=== PATIENT | male | born 1980 ===

== ENCOUNTER 2016-06-28 15:11 | Inpatient (IN) | payer MEDICAID, OTHER ==
[2016-06-28 15:56] LABS: BASO # 0.1 K/uL (0.0-0.2); BASO % 1.2 % (0.0-2.0); EOS # 0.1 K/uL (0.0-0.7); EOS % 1.9 % (0.0-4.0); HEMATOCRIT 42.5 % (35.0-51.0); LYMPH # 1.8 K/uL (1.0-4.3); LYMPH % 27.5 % (20.0-40.0); MEAN CELL VOLUME 89.4 fL (80.0-94.0); MEAN CORPUSCULAR HEMOGLOBIN 30.2 pg (27.0-31.0); MEAN CORPUSCULAR HGB CONC 33.8 g/dL (33.0-37.0); MEAN PLATELET VOLUME 8.2 fL (7.2-11.7); MONO # 0.5 K/uL (0.0-0.8); MONO % 7.4 % (0.0-10.0); RED CELL DISTRIBUTION WIDTH 13.6 % (11.5-14.5); WHITE BLOOD COUNT 6.6 K/uL (4.8-10.8)
[2016-06-28 16:02] LABS: RBC URINE 1 /hpf (0-3); URINE BILIRUBIN NEGATIVE (NEGATIVE); URINE BLOOD NEGATIVE (NEGATIVE); URINE COLOR Yellow (YELLOW); URINE GLUCOSE (UA) NORMAL (Normal); URINE KETONE NEGATIVE (NEGATIVE); URINE LEUKOCYTE ESTERASE NEG Leu/uL (Negative); URINE PROTEIN NEGATIVE (NEGATIVE); URINE UROBILINOGEN NORMAL mg/dL (0.2-1.0); WBC URINE 2 /hpf (0-5)
[2016-06-28 16:16] LABS: CHLORIDE 101 mmol/L (98-107); POTASSIUM 3.8 mmol/L (3.6-5.2); SODIUM 141 mmol/L (132-148)
[2016-06-28 16:18] LABS: ALB/GLOB RATIO 1.2 (1.0-2.1); ALKALINE PHOSPHATASE 72 U/L (38-126); ALT/SGPT 18 U/L (21-72); AST/SGOT 28 U/L (17-59); BILIRUBIN,TOTAL 1.7 mg/dL (0.2-1.3); BLOOD UREA NITROGEN 11 mg/dL (9-20); CARBON DIOXIDE 27 mmol/L (22-30); GFR AFRICAN-AMERICAN > 60; GLUCOSE,RANDOM 86 mg/dL (75-110)
[2016-06-28 16:19] LABS: ALCOHOL SERUM < 10 mg/dl (0-10)
--- NOTE | 2016-06-28 16:29 | C.PDOC ---
History Of Present Illness 35 y/o male presents to ED requesting detox from heroin and xanax. Denies any complaints on arrival. No signs of withdrawal. Denies suicidal ideation or homicidal ideation. Time Seen by Provider: 06/28/16 15:41 Chief Complaint (Nursing): Substance Abuse History Per: Patient History/Exam Limitations: no limitations Current Symptoms Are (Timing): Still Present Suicide/Self Injury Attempted (Context): None Modifying Factor(s): Narcotics, Other (benzos) Associated Symptoms: denies: Suicidal Thoughts, Suicidal Plan Recent travel outside of the [place]: No Past Medical History Reviewed: Historical Data, Nursing Documentation, Vital Signs Vital Signs: Last Vital Signs Temp 97.9 F 06/28/16 15:24 Pulse 102 H 06/28/16 15:24 Resp 18 06/28/16 15:24 BP 132/84 06/28/16 15:24 Pulse Ox 99 06/28/16 16:33 - Medical History PMH: Back Problems - [facility] Procedures DETOXIFICATION SERVICES FOR SUBSTANCE ABUSE TREATMENT (03/09/16) INDIV PSYCHOTHERAPY FOR SUBSTANCE ABUSE TREATMENT, SUPPORT (03/09/16) Family History: States: Unknown Family Hx - Social History Hx Tobacco Use: No Hx Alcohol Use: No Hx Substance Use: Yes - Immunization History Hx Tetanus Toxoid Vaccination: No Hx Influenza Vaccination: No Hx Pneumococcal Vaccination: No Review Of Systems Except As Marked, All Systems Reviewed And Found Negative. Constitutional: Negative for: Fever, Chills Respiratory: Negative for: Cough, Shortness of Breath Gastrointestinal: Negative for: Vomiting, Abdominal Pain, Diarrhea Skin: Negative for: Rash Psych: Negative for: Withdrawal Physical Exam - Physical Exam Appears: Non-toxic, No Acute Distress Skin: Normal Color, Warm, Dry Head: Atraumatic, Normacephalic Eye(s): bilateral: Normal Inspection Neck: Normal ROM Chest: Symmetrical Cardiovascular: Rhythm Regular Respiratory: Normal Breath Sounds, No Rales, No Rhonchi, No Wheezing Gastrointestinal/Abdominal: Soft, No Tenderness Back: Normal Inspection Extremity: Normal ROM, No Tenderness, No Pedal Edema, No Deformity, No Swelling Neurological/Psych: Oriented x3, Normal Speech ED Course And Treatment - Laboratory Results Result Diagrams: 06/28/16 15:52 06/28/16 15:52 Lab Interpretation: No Acute Changes O2 Sat by Pulse Oximetry: 99 (RA) Pulse Ox Interpretation: Normal Medical Decision Making Medical Decision Making: Patient was a pre-screen Labs ordered and reviewed. UDS positive for benzo, no opiates. n my clinical judgment patient is medically cleared and stable for admission. As per [facility] detox coordinator, patient is to be admitted to Dr Fernandez service for detox of benzo use. Disposition - Disposition Disposition: HOME/ ROUTINE Disposition Time: 17:32 Condition: STABLE - POA Present On Arrival: None - Clinical Impression Clinical Impression: Anxiolytic dependence - PA / CALL PERSON / Resident Statement MD/DO has reviewed & agrees with the documentation as recorded. - Scribe Statement The provider has reviewed the documentation as recorded by the Tiffanie Franklin Provider Scribe Attestation: All medical record entries made by the Chayoibe were at my direction and personally dictated by me. I have reviewed the chart and agree that the record accurately reflects my personal performance of the history, physical exam, medical decision making, and the department course for this patient. I have also personally directed, reviewed, and agree with the discharge instructions and disposition. Decision To Admit - Pt Status Changed To: Hospital Disposition Of: Inpatient - Admit Certification Admit to Inpatient:: After my assessment, the patient will require hospitalization for at least two midnights. This is because of the severity of symptoms shown, intensity of services needed, and/or the medical risk in this patient being treated as an outpatient. - InPatient: Physician Admission Certification: I certify that this patient requires 2 or more midnights of care for the following reason:: Patient with anxiolytic use disorder severe and here for detox. accepted to service of Dr Fernandez - . Bed Request Type: Detox Admitting Physician: Bry Fernandez Patient Diagnosis: Anxiolytic dependence
[2016-06-28] MEDS ORDERED: Buprenorphine Hydrochloride 2 mg SL ONE ×3 (18:56→22:15)
[2016-06-29] MEDS: Buprenorphine Hydrochloride 2 mg SL SCH (09:17)
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
[2016-06-29] MEDS ORDERED: Aluminum Hydroxide/Magnesium Hydroxide Susp (30 mL) PO PRN (11:35)
--- NOTE | 2016-06-30 22:30 | PCM.PYCHPN ---
Psychiatric Progress Note - Psychiatric Progress Note Patient seen today, length of contact: 15 min Patient Chief Complaint: "A little better" Problems Identified/Issues Discussed: The pt is seen, chart reviewed, case discussed with staff. The pt is compliant with medications and reports no side-effects. Symptoms are improving but needs more time to stabilize. After care discussed, support and psychoeducation given. [place] and CBT used briefly. Medication Change: Yes (detox changes daily) Medical Record Reviewed: Yes Mental Status Examination - Cognitive Function Orientation: Person, Place, Situation, Time Memory: Intact Attention: WNL Concentration: Poor Association: WNL Fund of Knowledge: WNL - Mood Mood: Anxious - Affect Affect: Constricted - Speech Speech: Appropriate - Formal Thought Process Formal Thought Process: No Impairment - Suicidal Ideation Suicidal Ideation: No - Homicidal Ideation Homicidal Ideation: No Goal/Treatment Plan - Goal/Treatment Plan Need for Continued Stay: Discharge may exacerbated symptoms, Severe functional impairment Progress Toward Problem(s) and Goals/Treatment Plan: Opioids: -Subutex detox -As needed medications -Support and psychoeducation -Attend groups and activities -[place] and CBT Refer to rehab or IOP Benzos (sed, hyp, anx): - Librium detox - Support and psycheod - [place] and CBT
[2016-07-01] MEDS: Buprenorphine Hydrochloride 2 mg SL SCH (09:54)
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
[2016-07-02 02:25] LABS: ACETONE None Detected; ETHANOL None Detected; METHANOL None Detected
[2016-07-02 06:11] VITALS: PULSE 69; O2SAT 99
[2016-07-02] MEDS: Buprenorphine Hydrochloride 2 mg SL SCH (09:37)
[2016-07-02 09:53] VITALS: BP 124/80; RESP 16; TEMP 97.3
== END 2016-07-02 10:20 | disposition home or self-care (01) | DRG 745 ==
LOC: C.ER 15:11 → C.7D 17:29
PROVIDERS: ADMIT Psychiatry & Neurology Psychiatry; ATTEND Psychiatry & Neurology Psychiatry
PROC: HZ2ZZZZ Detoxification Services for Substance Abuse Treatment (ICD-10-PCS; principal; 2016-06-28)
PROC: HZ59ZZZ Individual Psychotherapy for Substance Abuse Treatment, Supportive (ICD-10-PCS; 2016-06-28)
PROC: HZ46ZZZ Group Counseling for Substance Abuse Treatment, Psychoeducation (ICD-10-PCS; 2016-06-28)
PROC: GZ3ZZZZ Medication Management (ICD-10-PCS; 2016-06-28)
DX: F11.23 Opioid dependence with withdrawal (principal); F13.230 Sedative, hypnotic or anxiolytic dependence with withdrawal, uncomplicated; F41.1 Generalized anxiety disorder

== ENCOUNTER 2016-10-06 15:50 | Observation (INO) | payer MEDICAID, OTHER ==
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
--- NOTE | 2016-10-06 17:25 | RAD ---
PROCEDURE: Radiographs of the right tibia and fibula. HISTORY: injury COMPARISON: None available. TECHNIQUE: Frontal and lateral views obtained. FINDINGS: BONES: No acute displaced fracture. JOINT SPACES: No dislocation. OTHER FINDINGS: Soft tissues appear unremarkable. No evidence of radiopaque foreign body. IMPRESSION: No acute displaced fracture or dislocation identified.
--- NOTE | 2016-10-06 17:26 | RAD ---
PROCEDURE: Right Ankle Radiographs. HISTORY: injury COMPARISON: None available. FINDINGS: BONES: No acute displaced fracture. JOINTS: No dislocation. SOFT TISSUES: Soft tissue swelling. No evidence of radiopaque foreign body. OTHER FINDINGS: None. IMPRESSION: Marked soft tissue swelling. No acute displaced fracture, dislocation, or significant joint effusion identified. If symptoms persist or if there is clinical concern, x-ray follow-up in 7-10 days should be considered.
--- NOTE | 2016-10-06 17:30 | RAD ---
PROCEDURE: Right Foot Radiographs. HISTORY: injury COMPARISON: None available. FINDINGS: BONES: Comminuted fracture of the distal 2nd metatarsal. Remainder the visualized osseous structures appear intact. JOINTS: No dislocation. SOFT TISSUES: Soft tissue swelling. No evidence of radiopaque foreign body. OTHER FINDINGS: None. IMPRESSION: Comminuted fracture of the 2nd distal metatarsal. Associated soft tissue swelling.
--- NOTE | 2016-10-06 18:13 | CT ---
PROCEDURE: CT HEAD WITHOUT CONTRAST. HISTORY: injury COMPARISON: 10/28/2013 TECHNIQUE: Axial computed tomography images were obtained through the head/brain without intravenous contrast. Radiation dose: Total exam DLP = 898 mGy-cm. This CT exam was performed using one or more of the following dose reduction techniques: Automated exposure control, adjustment of the mA and/or kV according to patient size, and/or use of iterative reconstruction technique. FINDINGS: HEMORRHAGE: No intracranial hemorrhage. BRAIN: No mass effect or edema. No atrophy or chronic microvascular ischemic changes. VENTRICLES: Unremarkable. No hydrocephalus. CALVARIUM: Unremarkable. PARANASAL SINUSES: Unremarkable as visualized. No significant inflammatory changes. MASTOID AIR CELLS: Unremarkable as visualized. No inflammatory changes. OTHER FINDINGS: None. IMPRESSION: No acute findings
--- NOTE | 2016-10-06 18:18 | CT ---
PROCEDURE: CT MAXILLOFACIAL BONES WITHOUT CONTRAST HISTORY: injury COMPARISON: None TECHNIQUE: Contiguous axial CT images of the maxillofacial bones were obtained. Coronal and sagittal reformats were generated. Radiation dose: Total exam DLP = 764 mGy-cm. This CT exam was performed using one or more of the following dose reduction techniques: Automated exposure control, adjustment of the mA and/or kV according to patient size, and/or use of iterative reconstruction technique. FINDINGS: NASAL BONES: Unremarkable. ORBITS: Unremarkable. PARANASAL SINUSES/ MASTOIDS: There is partial opacification of the right-sided ethmoid air cells. MAXILLA: Unremarkable. MANDIBLE/ TEMPOROMANDIBULAR JOINTS: Unremarkable. SKULL BASE: Unremarkable. TEMPORAL BONES: Middle ears and mastoid grossly unremarkable. OTHER FINDINGS: None. IMPRESSION: No evidence of acute fracture
[2016-10-06 20:16] VITALS: BP 130/92; PULSE 88; RESP 20; TEMP 97.9; O2SAT 100
--- NOTE | 2016-10-07 14:26 | CP.PCM.CON ---
History of Present Illness - History of Present Illness History of Present Illness: 36 year old male patient seen in ED for acute, dislocated right second metatarsal fracture. Patient is highly intoxicated and disoriented and is unable to give a proper history at this time. Review of Systems - Review of Systems Review of Systems: ROS unremarkable outside of HPI Past Patient History - Past Medical History & Family History Past Medical History?: Yes - Past Social History Smoking Status: Heavy Smoker > 10 Cigarettes Daily - CARDIAC Hx Cardiac Disorders: No Hx Hypertension: No - PULMONARY Hx Tuberculosis: No - NEUROLOGICAL Hx Seizures: Yes (from xanax w/d) - HEMATOLOGICAL/ONCOLOGICAL Hx Cancer: No Hx Human Immunodeficiency Virus (HIV): No - MUSCULOSKELETAL/RHEUMATOLOGICAL Hx Musculoskeletal Disorders: Yes Hx Falls: Yes - GENITOURINARY/GYNECOLOGICAL Hx Sexually Transmitted Disorders: No - PSYCHIATRIC Hx Substance Use: Yes - SURGICAL HISTORY Hx Surgeries: No - ANESTHESIA Hx Anesthesia: No Hx Anesthesia Reactions: No Meds Home Medications: Home Medication List Medication Instructions Recorded Confirmed Type traMADol [Ultram] 50 mg PO TID #7 tab 10/06/16 Rx Allergies/Adverse Reactions: Allergies Allergy/AdvReac Type Severity Reaction Status Date / Time No Known Allergies Allergy Verified 10/06/16 16:18 Physical Exam - Constitutional Appears: Unkempt - Extremities Exam Additional comments: LE focused exam: Vasc: DP/PT pulses palpable 2/4 b/l. Skin temperature warm to warm from proximal to distal. CFT < 3 seconds to digits 1-5 b/l Neuro: Epicritic and protective sensation grossly intact b/l Derm: No open lesions, wounds, maceration, xerosis, anormal pigmentation or abnormal growths noted at this time MSK: POP to right midfoot - Neurological Exam Neurological exam: Altered Results - Vital Signs Recent Vital Signs: Last Vital Signs Temp 97.9 F 10/06/16 20:14 Pulse 88 10/06/16 20:14 Resp 20 10/06/16 20:14 BP 130/92 H 10/06/16 20:14 Pulse Ox 100 10/06/16 20:14 Assessment & Plan - Assessment and Plan (Free Text) Assessment: 36 year old male seen in ED for displaced second metatarsal fx Plan: Patient seen and evaluated Xray shows acute, displaced fracture of right second metatarsal Plan discussed with attending Dr. Fang Posterior splint applied to right leg Patient to follow up with Dr. Fang on Monday in her [facility] [place] clinic - Date & Time Date: 10/06/16 Time: 18:00
== END 2016-10-06 20:05 | disposition home or self-care (01) ==
LOC: C.ER 15:50 → C.9OBSV 19:37
PROVIDERS: ADMIT Emergency Medicine; ATTEND Emergency Medicine
DX: F10.129 Alcohol abuse with intoxication, unspecified (principal); Y90.9 Presence of alcohol in blood, level not specified; S00.81XA Abrasion of other part of head, initial encounter; S00.83XA Contusion of other part of head, initial encounter; S92.324A Nondisplaced fracture of second metatarsal bone, right foot, initial encounter for closed fracture; Y00.XXXA Assault by blunt object, initial encounter
CPT/HCPCS: 70450; 70486; 73590; 73610; 73630; G0378

== ENCOUNTER 2016-10-17 08:47 | Inpatient (IN) | payer MEDICAID, OTHER ==
[2016-10-17] MEDS ORDERED: Tmp-Smz 800 mg-160 mg DS Tab PO STA (09:38)
[2016-10-17] MEDS ORDERED: Tmp-Smz 800 mg-160 mg DS Tab ONE (09:44)
[2016-10-17 10:03] LABS: BASO # 0.1 K/uL (0.0-0.2); BASO % 0.8 % (0.0-2.0); EOS # 0.3 K/uL (0.0-0.7); EOS % 3.2 % (0.0-4.0); HEMATOCRIT 37.6 % (35.0-51.0); LYMPH # 1.7 K/uL (1.0-4.3); LYMPH % 21.4 % (20.0-40.0); MEAN CORPUSCULAR HEMOGLOBIN 31.9 pg (27.0-31.0); MEAN CORPUSCULAR HGB CONC 34.3 g/dL (33.0-37.0); MEAN PLATELET VOLUME 9.3 fL (7.2-11.7); MONO # 0.6 K/uL (0.0-0.8); MONO % 8.2 % (0.0-10.0); RED CELL DISTRIBUTION WIDTH 14.4 % (11.5-14.5); WHITE BLOOD COUNT 7.8 K/uL (4.8-10.8)
[2016-10-17 10:09] LABS: MEAN CELL VOLUME 92.9 fL (80.0-94.0)
[2016-10-17 10:11] LABS: CHLORIDE 98 mmol/L (98-107)
[2016-10-17 10:12] LABS: POTASSIUM 3.9 mmol/L (3.6-5.2); SODIUM 142 mmol/L (132-148)
[2016-10-17 10:14] LABS: ALB/GLOB RATIO 1.2 (1.0-2.1); ALKALINE PHOSPHATASE 84 U/L (38-126); AST/SGOT 31 U/L (17-59); BILIRUBIN,TOTAL 1.4 mg/dL (0.2-1.3); BLOOD UREA NITROGEN 11 mg/dL (9-20); CARBON DIOXIDE 34 mmol/L (22-30); GFR AFRICAN-AMERICAN > 60; TOTAL PROTEIN 7.6 g/dL (6.3-8.3)
[2016-10-17 10:15] LABS: ALCOHOL SERUM < 10 mg/dl (0-10); ALT/SGPT 37 U/L (21-72); CALCIUM 8.8 mg/dl (8.6-10.4); GLUCOSE,RANDOM 99 mg/dL (75-110)
--- NOTE | 2016-10-17 10:54 | C.PDOC ---
History Of Present Illness 36 year old male presents to the ED seeking detox from heroin, alcohol, and benzodiazepines. Patient states for the last four months he has been taking "benzos everyday" and last use was 9pm last night. He also injects heroin and last use was just prior to arrival. Patient drinks alcohol and is noticing a growing "addiction." He has a history of withdrawal seizures, last one was in March 2016. Patient denies nausea, vomiting, suicidal, or homicidal ideations. Time Seen by Provider: 10/17/16 09:13 Chief Complaint (Nursing): Substance Abuse History Per: Patient History/Exam Limitations: no limitations Suicide/Self Injury Attempted (Context): None Modifying Factor(s): Alcohol, Narcotics (heroin ), Other (benzodiazepines) Associated Symptoms: denies: Suicidal Thoughts, Suicidal Plan Involuntary Hold By: None Recent travel outside of the [place]: No Additional History Per: Girlfriend Past Medical History Reviewed: Historical Data, Nursing Documentation, Vital Signs Vital Signs: Last Vital Signs Temp 98.6 F 10/17/16 08:50 Pulse 87 10/17/16 08:50 Resp 18 10/17/16 08:50 BP 143/92 H 10/17/16 08:50 Pulse Ox 98 10/17/16 11:06 - Medical History PMH: Back Problems, Seizures (from xanax w/d) - [facility] Procedures DETOXIFICATION SERVICES FOR SUBSTANCE ABUSE TREATMENT (06/28/16) GROUP GOLF COURSE ARCHITECT FOR SUBSTANCE ABUSE TREATMENT, PSYCHOEDUCATION (06/28/16) INDIV PSYCHOTHERAPY FOR SUBSTANCE ABUSE TREATMENT, SUPPORT (06/28/16) MEDICATION MANAGEMENT (06/28/16) Family History: States: Other Other Family History: Non-contributory. - Social History Hx Tobacco Use: No Hx Alcohol Use: Yes Hx Substance Use: Yes - Immunization History Hx Tetanus Toxoid Vaccination: No Hx Influenza Vaccination: No Hx Pneumococcal Vaccination: No Review Of Systems Except As Marked, All Systems Reviewed And Found Negative. Constitutional: Negative for: Fever Cardiovascular: Negative for: Chest Pain, Palpitations Respiratory: Negative for: Cough, Shortness of Breath Gastrointestinal: Negative for: Nausea, Vomiting, Abdominal Pain, Diarrhea Psych: Negative for: Suicidal ideation Physical Exam - Physical Exam Appears: Non-toxic, No Acute Distress Skin: Warm, Dry, Other (Track dwyer to bilateral upper extremities. Scab over dorsal aspect of left hand with 1 cm of surrounding erythema with no fluctuance. ) Head: Atraumatic Eye(s): bilateral: Normal Inspection Oral Mucosa: Moist Neck: Supple Chest: Symmetrical, No Deformity Cardiovascular: Rhythm Regular Respiratory: Normal Breath Sounds, No Rales, No Rhonchi, No Wheezing Gastrointestinal/Abdominal: Soft, No Tenderness, No Distention, No Guarding, No Rebound ED Course And Treatment - Laboratory Results Result Diagrams: 10/17/16 09:59 10/17/16 09:59 ECG: Interpreted By Me, Viewed By Me ECG Rhythm: Sinus Rhythm Rate From EC O2 Sat by Pulse Oximetry: 98 (room air ) Progress Note: EKG and UA were ordered. Patient was given Keflex and Bactrim. Disposition - Disposition Disposition: HOSPITALIZED Disposition Time: 12:06 Condition: STABLE Forms: [facility] (Iranian) - Clinical Impression Clinical Impression: Drug abuse, Cellulitis of hand - Scribe Statement The provider has reviewed the documentation as recorded by the Scribe Mitzi Justice All medical record entries made by the Scribe were at my direction and personally dictated by me. I have reviewed the chart and agree that the record accurately reflects my personal performance of the history, physical exam, medical decision making, and the department course for this patient. I have also personally directed, reviewed, and agree with the discharge instructions and disposition.
[2016-10-17 11:04] LABS: RBC URINE < 1 /hpf (0-3); URINE BILIRUBIN NEGATIVE (NEGATIVE); URINE BLOOD NEGATIVE (NEGATIVE); URINE COLOR Yellow (YELLOW); URINE GLUCOSE (UA) NORMAL (Normal); URINE KETONE NEGATIVE (NEGATIVE); URINE LEUKOCYTE ESTERASE NEG Leu/uL (Negative); URINE PROTEIN NEGATIVE (NEGATIVE); WBC URINE 1 /hpf (0-5)
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
[2016-10-17] MEDS ORDERED: Buprenorphine Hydrochloride 2 mg SL ONE ×2 (15:50→16:50)
[2016-10-18] MEDS ORDERED: DiphenhydrAMINE 50 mg/ml Inj IM STA (04:38)
[2016-10-18] MEDS ORDERED: Multiple Vitamins Tab PO SCH (10:00)
[2016-10-18] MEDS: Buprenorphine Hydrochloride 2 mg SL SCH (11:08)
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
--- NOTE | 2016-10-19 00:33 | CARD ---
APPROVED REPORT EKG Measurement Heart [id number] <Conclusion> Normal sinus rhythm with sinus arrhythmia Normal ECG
[2016-10-19] MEDS: Buprenorphine Hydrochloride 2 mg SL SCH (09:21)
--- NOTE | 2016-10-19 11:22 | PCM.PYCHPN ---
Psychiatric Progress Note - Psychiatric Progress Note Patient seen today, length of contact: 16 min Patient Chief Complaint: "I'm better" Problems Identified/Issues Discussed: The pt is seen, chart reviewed, case discussed with staff. Support given, CBT and NM used briefly No new symptoms reported, improving slowly and needs more time No SEs from medications, risks discussed. After care discussed, he is somewhat undecided and gives inconsistent answers: "...my GF needs help too, I need to move to [place], I need suboxone, rehab..." etc. Medication Change: Yes (detiox changes daily) Medical Record Reviewed: Yes Mental Status Examination - Cognitive Function Orientation: Person, Place, Situation, Time Memory: Impaired Attention: Poor Concentration: Poor Association: WNL Fund of Knowledge: WNL - Mood Mood: Anxious - Affect Affect: Constricted - Speech Speech: Appropriate - Formal Thought Process Formal Thought Process: No Impairment - Suicidal Ideation Suicidal Ideation: No - Homicidal Ideation Homicidal Ideation: No Goal/Treatment Plan - Goal/Treatment Plan Need for Continued Stay: Discharge may exacerbated symptoms, Severe functional impairment Progress Toward Problem(s) and Goals/Treatment Plan: Opioids: Subutex detox As needed medications Gabapentin for augmentation Attend groups and activities Supportive therapy and psychoeducation Mi for abstinence CBT for relapse prevention Encourage MAT Refer to rehab or IOP Attend self-help groups as well Alcohol and benzos: Librium detox As needed medications Gabapentin for augmentation Attend groups and activities Supportive therapy and psychoeducation Mi for abstinence CBT for relapse prevention Encourage MAT Refer to rehab or IOP Attend self-help groups as well Patch and [place] for tobacco Limit setting for PD Estimated Date of D/C: 10/21/16
[2016-10-19 14:02] VITALS: RESP 18
[2016-10-20] MEDS: Buprenorphine Hydrochloride 2 mg SL SCH (09:09)
--- NOTE | 2016-10-20 10:46 | PCM.PYCHPN ---
Psychiatric Progress Note - Psychiatric Progress Note Patient seen today, length of contact: 17 min Patient Chief Complaint: "I have pain in my hand" Problems Identified/Issues Discussed: The pt is seen, chart reviewed, case discussed with staff. The pt is compliant with medications and reports no side-effects. Symptoms are improving but needs more time to stabilize. After care discussed, support and psychoeducation given. Med consult asked for his hand CBC ordered Seroquel ordered bc of insomnia Medication Change: Yes (detiox changes daily) Medical Record Reviewed: Yes Mental Status Examination - Cognitive Function Orientation: Person, Place, Situation, Time Memory: Impaired Attention: Poor Concentration: Poor Association: WNL Fund of Knowledge: WNL - Mood Mood: Anxious - Affect Affect: Constricted - Speech Speech: Appropriate - Formal Thought Process Formal Thought Process: No Impairment - Suicidal Ideation Suicidal Ideation: No - Homicidal Ideation Homicidal Ideation: No Goal/Treatment Plan - Goal/Treatment Plan Need for Continued Stay: Discharge may exacerbated symptoms, Severe functional impairment Progress Toward Problem(s) and Goals/Treatment Plan: Opioids: Subutex detox As needed medications Gabapentin for augmentation Attend groups and activities Supportive therapy and psychoeducation Mi for abstinence CBT for relapse prevention Encourage MAT Refer to rehab or IOP Attend self-help groups as well Alcohol and benzos: Librium detox As needed medications Gabapentin for augmentation Attend groups and activities Supportive therapy and psychoeducation Mi for abstinence CBT for relapse prevention Encourage MAT Refer to rehab or IOP Attend self-help groups as well Patch and [place] for tobacco Limit setting for PD Abscess: Keflex Med consult cbc/diff Estimated Date of D/C: 10/21/16
[2016-10-20 11:45] LABS: BASO % 0.7 % (0.0-2.0); EOS # 0.1 K/uL (0.0-0.7); EOS % 1.2 % (0.0-4.0); HEMATOCRIT 46.5 % (35.0-51.0); LYMPH # 1.6 K/uL (1.0-4.3); LYMPH % 21.6 % (20.0-40.0); MEAN CELL VOLUME 92.6 fL (80.0-94.0); MEAN CORPUSCULAR HEMOGLOBIN 31.8 pg (27.0-31.0); MEAN CORPUSCULAR HGB CONC 34.3 g/dL (33.0-37.0); MEAN PLATELET VOLUME 8.9 fL (7.2-11.7); MONO # 0.8 K/uL (0.0-0.8); MONO % 10.7 % (0.0-10.0); RED CELL DISTRIBUTION WIDTH 14.8 % (11.5-14.5); WHITE BLOOD COUNT 7.2 K/uL (4.8-10.8)
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
--- NOTE | 2016-10-20 16:25 | RAD ---
PROCEDURE: Left Hand Radiographs. HISTORY: left hand cellulitis COMPARISON: None. FINDINGS: BONES: Bone alignment and mineralization are normal. There is no acute displaced fracture or bone destruction. JOINTS: Normal. No osteoarthritic changes. SOFT TISSUES: There is diffuse soft tissue swelling in the hand. There is a linear radiopaque foreign body measuring approximately 13 mm overlying the base of the distal phalanx of the thumb. OTHER FINDINGS: None. IMPRESSION: 1. No acute fracture, bone erosion or destruction. 2. Diffuse soft tissue swelling in the hand which could represent cellulitis in the appropriate clinical setting. 3. 13 mm linear radiopaque foreign body overlying the base of the distal phalanx of the thumb.
[2016-10-20] MEDS: Saccharomyces Boulardi 250 mg Cap PO SCH (17:05)
[2016-10-21 06:13] VITALS: BP 104/66
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
[2016-10-21] MEDS: Saccharomyces Boulardi 250 mg Cap PO SCH (09:59)
[2016-10-21 10:32] VITALS: PULSE 82; TEMP 97.4; O2SAT 100
--- NOTE | 2016-10-21 13:36 | CP.PCM.PN ---
<Salome Chun Pamela - Last Filed: 10/21/16 13:34> Subjective - Date & Time of Evaluation Date of Evaluation: 10/21/16 Time of Evaluation: 08:00 - Subjective Subjective: PGY1-Medicine Note- Dr. Triplett's Service Patient seen and examined at bedside and in no acute distress. Patient says his left hand is not bothering him. Patient denies chest, pain, shortness of breath , fevers or chills. Objective - Vital Signs/Intake and Output Vital Signs (last 24 hours): Temp Pulse Resp BP Pulse Ox 97.4 F L 82 18 104/66 100 10/21/16 10:29 10/21/16 10:29 10/21/16 10:29 10/21/16 06:12 10/21/16 10:29 - Labs Labs: 10/20/16 11:38 - Constitutional Appears: Well, Non-toxic, No Acute Distress - Head Exam Head Exam: ATRAUMATIC, NORMAL INSPECTION, NORMOCEPHALIC - Eye Exam Eye Exam: EOMI, Normal appearance - ENT Exam ENT Exam: Mucous Membranes Moist - Neck Exam Neck Exam: Full ROM. absent: Tenderness - Respiratory Exam Respiratory Exam: Clear to Ausculation Bilateral, NORMAL BREATHING PATTERN. absent: Rales, Rhonchi, Wheezes, Respiratory Distress, Stridor - Cardiovascular Exam Cardiovascular Exam: REGULAR RHYTHM, RRR - GI/Abdominal Exam GI & Abdominal Exam: Soft, Normal Bowel Sounds - Extremities Exam Extremities Exam: Full ROM. absent: Pedal Edema Additional comments: left hand with mild erythema and edema surrounding scab in center - Neurological Exam Neurological Exam: Alert, Awake, Oriented x3 - Psychiatric Exam Psychiatric exam: Normal Affect, Normal Mood - Skin Skin Exam: Intact, Normal Color, Warm Additional comments: left hand with mild erythema and edema surrounding scab in center Assessment and Plan - Assessment and Plan (Free Text) Assessment: 1. Left hand cellulitis Clindamycin 300 mg TID Florastor 250 mg po daily left hand xray: 1. No acute fracture, bone erosion or destruction 2. diffuse soft tissue swelling in the hand which could represent cellulitis in the appropriate clinical setting 3. 13mm linear radiopaque foreign body overlying the base of the distal phalanx of the thumb patient will be discharged on clindamycin 300 mg TID for additional 7 days 2. Heroin abuse managed per psych 3. Benzodiazepine abuse managed per psych 4. Alcohol abuse managed per psych 5. Tobacco abuse managed per psych patient signed off on by medicine, as per Dr. Triplett. please re- consult if needed. <Rick Triplett - Last Filed: 10/21/16 16:21> Objective - Vital Signs/Intake and Output Vital Signs (last 24 hours): Temp Pulse Resp BP Pulse Ox 97.4 F L 82 18 104/66 100 10/21/16 10:29 10/21/16 10:29 10/21/16 10:29 10/21/16 06:12 10/21/16 10:29 - Labs Labs: 10/20/16 11:38 Attending/Attestation - Attestation I have personally seen and examined this patient.: Yes I have fully participated in the care of the patient.: Yes I have reviewed all pertinent clinical information, including history, physical exam and plan: Yes Notes (Text): 10/21/16 16:18 Medical attending: Patient was seen and examined by me, agree with the above note by medical billing and coding instructor. The patient was about to be discharged by psychiatry. We advised the patient to continue taking antibiotics, he was given a prescription for clindamycin he was also advised to take floor store or to take things like yogurt to act as a probiotic as well we advised him the patient to avoid any further polysubstance abuse. We also discussed with him the x-ray of his hand he has a metallic object the base of his thumb. It's quite far from the site of the infection on the dorsal aspect of the hand. I looked at it is not painful is not swollen. And it's very distant from the site that we were consulted ofr, nevertheless we explained to the patient that he should finish up the antibiotics that were to give him and that we recommended that he A follow-up at [facility] downstairs in case he has further complications. Thank you very much, Rick Triplett
== END 2016-10-21 12:00 | disposition home or self-care (01) | DRG 744 ==
LOC: C.ER 08:47 → C.9E 12:06 → C.7D 12:31
PROVIDERS: ADMIT Psychiatry & Neurology Psychiatry; ATTEND Psychiatry & Neurology Psychiatry
PROC: HZ2ZZZZ Detoxification Services for Substance Abuse Treatment (ICD-10-PCS; principal; 2016-10-17)
PROC: HZ56ZZZ Individual Psychotherapy for Substance Abuse Treatment, Psychoeducation (ICD-10-PCS; 2016-10-17)
PROC: HZ46ZZZ Group Counseling for Substance Abuse Treatment, Psychoeducation (ICD-10-PCS; 2016-10-17)
DX: F11.23 Opioid dependence with withdrawal (principal); F10.20 Alcohol dependence, uncomplicated; F13.10 Sedative, hypnotic or anxiolytic abuse, uncomplicated; L03.114 Cellulitis of left upper limb; L02.512 Cutaneous abscess of left hand; F60.9 Personality disorder, unspecified; F17.210 Nicotine dependence, cigarettes, uncomplicated; K59.00 Constipation, unspecified; Z59.0 Homelessness